=== PATIENT | female | born 1950 | race Caucasian/White ===

== ENCOUNTER 2018-11-15 12:00 | Emergency (ER) | payer OTHER ==
[2018-11-15 12:20] VITALS: TEMP 98.7; BMI 35.1
[2018-11-15] MEDS ORDERED: KETOROLAC TROMETHAMINE 30 MG/1 ML VIAL IM ONE (12:46)
[2018-11-15] MEDS ORDERED: RANITIDINE HCL 150 MG TABLET (FP) PO ONE (12:46)
[2018-11-15] MEDS ORDERED: LIDOCAINE 5% TOPICAL PATCH TP ONE (12:47)
--- NOTE | 2018-11-15 12:56 | PDOC ---
History of Present Illness - General Chief Complaint: Pain Stated Complaint: RT LEG SWELLING Time Seen by Provider: 11/15/18 12:29 History Source: Patient Exam Limitations: No Limitations Past History - Past Medical History Allergies/Adverse Reactions: Allergies Allergy/AdvReac Type Severity Reaction Status Date / Time No Known Allergies Allergy Verified 11/15/18 12:20 Home Medications: Ambulatory Orders Unobtainable 11/15/18 COPD: No Diabetes: Yes Thyroid Disease: Yes (Hypo) - Surgical History Abdominal Surgery: Yes (hernia repair) Cholecystectomy: Yes - Suicide/Smoking/Psychosocial Hx Smoking History: Never smoked Have you smoked in the past 12 months: No Information on smoking cessation initiated: No Hx Alcohol Use: No Drug/Substance Use Hx: No *Physical Exam - Vital Signs Last Vital Signs Temp Pulse Resp BP Pulse Ox 98.7 F 73 17 174/74 H 100 11/15/18 12:16 11/15/18 12:16 11/15/18 12:16 11/15/18 12:16 11/15/18 12:16 - Physical Exam General Appearance: No: Apparent Distress Musculoskeletal: positive: Other (pain with flexion of R knee, no effusion or significant swelling noted, no bony TTP, no erythema, normal skin color) Extremity: negative: Pedal Edema, Swelling, Calf Tenderness Integumentary: positive: Normal Color. negative: Erythema, Ecchymosis, Bruising Neurologic: positive: Alert, Normal Mood/Affect Medical Decision Making - Medical Decision Making 68 y/o F hx of DM, HLD, hypothyroidism, arthritis presents with worsening of her R knee pain from today. States she has severe arthritis of her R knee and is pending to get knee replacement done. At times, she will experience flare-up of her knee pain. Last experienced this 3 months ago and went to another urgent care where she got a shot in the gluteal site which helped with pain. Denies trauma. Takes Naprosyn usually for pain. Today she took 400 mg of Motrin, but it did not seem to help much. Denies other complaints. Does not currently use a cane or walker. Plan: Toradol 30 IM (patient denies prior hx of GI bleeds, kidney issues), Zantac, lido patch, reassess 11/15/18 12:51 Patient feeling much better on reassessment; able to flex knee Stable for dc 11/15/18 13:44 *DC/Admit/Observation/Transfer Diagnosis at time of Disposition: Arthritis of knee, right - Discharge Dispostion Disposition: HOME Condition at time of disposition: Stable Decision to Admit order: No - Referrals - Patient Instructions Printed Discharge Instructions: DI for Arthritis Additional Instructions: Thank you for choosing [facility]. It was a pleasure taking care of you. Please continue follow-up with your doctor for further management of your arthritis. Recommend using a cane to help if needed (hold cane with your left hand) Return to the Emergency Department if your symptoms worsen or persist or have other concerning symptoms. - Post Discharge Activity
[2018-11-15] MEDS ORDERED: KETOROLAC TROMETHAMINE 30 MG/1 ML VIAL ONE (13:09)
[2018-11-15] MEDS ORDERED: LIDOCAINE 5% TOPICAL PATCH ONE (13:09)
[2018-11-15] MEDS ORDERED: RANITIDINE HCL 150 MG TABLET (FP) ONE (13:09)
[2018-11-15 13:40] VITALS: BP 164/71; PULSE 74
== END 2018-11-15 14:00 | disposition home or self-care (01) ==
LOC: JERFT 12:00
PROC: 3E0233Z Introduction of Anti-inflammatory into Muscle, Percutaneous Approach (ICD-10-PCS; principal; 2018-11-15)
DX: M17.11 Unilateral primary osteoarthritis, right knee (principal); E78.5 Hyperlipidemia, unspecified; E11.9 Type 2 diabetes mellitus without complications; E03.9 Hypothyroidism, unspecified
CPT/HCPCS: 99281-25